=== PATIENT | female | born 1970 | race Caucasian/White ===

== ENCOUNTER 2023-02-11 07:23 | Outpatient (OUT) | payer OTHER, SELFPAY ==
[2023-02-11 08:13] LABS: Basophils Absolute Auto 0.1 10^3/uL (0.0-0.1); Basophils Percent Auto 0.6 % (0.2-2.0); Eosinophils Absolute Auto 0.3 10^3/uL (0.0-0.7); Eosinophils Percent Auto 3.2 % (0.9-7.0); Hematocrit 40.3 % (36.0-48.0); Immature Granulocytes Abs Auto 0.05 10^3/uL (0.00-0.03); Immature Granulocytes Pct Auto 0.6 % (0.0-0.5); Lymphocytes Absolute Auto 2.6 10^3/uL (1.2-3.8); Mean Corpuscular HGB Conc 32.3 g/dL (29.9-35.2); Mean Corpuscular Hemoglobin 29.1 pg (26.7-34.0); Mean Corpuscular Volume 90.4 fL (81.0-99.0); Monocytes Absolute Auto 0.6 10^3/uL (0.3-0.8); Monocytes Percent Auto 6.8 % (1.7-12.0); Neutrophils Percent Auto 58.8 % (43.0-75.0); Platelet Count 240 10^3/uL (150-450); Red Blood Count 4.46 10^6/uL (4.20-5.40); Red Cell Distribution Width 12.9 % (11.0-15.0); White Blood Count 8.5 10^3/uL (4.0-11.0)
[2023-02-11 10:31] LABS: Bilirubin Urine NEGATIVE (NEGATIVE); Blood Urine NEGATIVE (NEGATIVE); Clarity Urine CLEAR (CLEAR); Color Urine LT. YELLOW (YELLOW); Glucose Urine UA NEGATIVE (NEGATIVE); Ketones Urine NEGATIVE (NEGATIVE); Leukocyte Esterase Urine NEGATIVE (NEGATIVE); Nitrite Urine NEGATIVE (NEGATIVE); Protein Urine NEGATIVE (NEG/TRACE); Specific Gravity Urine 1.025 (1.005-1.025); Urobilinogen Urine 0.2 EU/dL (0.2-1.0); pH Urine 5.5 (5.0-9.0)
[2023-02-11 10:32] LABS: Urine Microscopic Indicated NO
[2023-02-11 10:50] LABS: Carbon Dioxide 27.9 mmol/L (21.0-32.0); Chloride 100 mmol/L (98-107); Potassium 3.9 mmol/L (3.5-5.1); Sodium 135 mmol/L (136-145)
[2023-02-11 10:51] LABS: BUN Creatinine Ratio 25.9; Calcium 9.1 mg/dL (8.5-10.1); Estimated GFR (African America >60 (>=60); Estimated GFR (Non-African Ame >60 (>=60); Glucose 157 mg/dL (74-106)
[2023-02-11 10:52] LABS: Alanine Aminotransferase 41 U/L (14-59); Alkaline Phosphatase 80 U/L (46-116); Aspartate Amino Transferase 22 U/L (15-37)
[2023-02-11 10:53] LABS: Albumin Level 3.8 g/dL (3.4-5.0); Globulin 3.8 g/dL; Total Protein 7.6 g/dL (6.4-8.2)
[2023-02-11 10:54] LABS: Cholesterol 175 mg/dL (<=200); HDL Cholesterol 56 mg/dL (40-60); Triglycerides 121 mg/dL (<=150); VLDL CHOLESTEROL 24.2 mg/dL
[2023-02-11 10:55] LABS: TSH W/ REFLEX FT4 4.084 uIU/mL (0.358-3.740)
[2023-02-11 10:57] LABS: Chol HDL Ratio 3.1
[2023-02-11 12:41] LABS: Free T4 0.83 ng/dL (0.76-1.46)
== END 2023-02-11 07:24 | disposition home or self-care (01) ==
PROVIDERS: PCP Nurse Practitioner; Visit Provider Nurse Practitioner
DX: Z00.00 Encounter for general adult medical examination without abnormal findings (principal)
CPT/HCPCS: 36415; 80053; 80061; 81003; 84439; 84443; 85025

== ENCOUNTER 2023-05-30 15:54 | Outpatient (OUT) | payer OTHER, SELFPAY ==
--- NOTE | 2023-05-30 16:07 | MM_ITS ---
Patient Name: SHERLYN PHAM MR#: [id number] : 1970 Exam Date: 05/30/2023 Ordering Doctor: CUCA Stephens CNP RADIOLOGY REPORT PROCEDURE: MM TOMOSYNTHESIS SCREENING BI COMPARISON: MG MAMM SCREEN 3D JASON CAD, 05/19/2022. MG MAMM SCREEN 3D JASON CAD, 12/08/2020. MG MAMM SCREEN JASON W CAD, 09/27/2018. MG MAMM SCREEN AJSON W CAD, 02/05/2009. INDICATIONS: screening Calculator Name NCI Breast Cancer Risk Assessment Tool 5 Year Breast Cancer Risk 1.30% Lifetime Breast Cancer Risk 10.50% Personal Breast Cancer No Personal Ovarian Cancer No Treatments Hysterectomy and Thyroidectomy Family Cancers Father with lung cancer at age ~55. LOCATION: [facility] BREAST COMPOSITION: There are scattered areas of fibroglandular density. FINDINGS: DIAGNOSTIC CATEGORY 1--NEGATIVE. RIGHT BREAST: No significant suspicious finding. No significant change has occurred. LEFT BREAST: No significant suspicious finding. No significant change has occurred. RECOMMENDATIONS: ROUTINE MAMMOGRAM AND CLINICAL EVALUATION IN 12 MONTHS. PLEASE NOTE: A NORMAL MAMMOGRAM DOES NOT EXCLUDE THE POSSIBILITY OF BREAST CANCER. A CLINICALLY SUSPICIOUS PALPABLE LUMP SHOULD BE BIOPSIED. Dictated by: Martinez Newton M.D. on 05/31/2023 at 13:43 Approved by: Martinez Newton M.D. on 05/31/2023 at 13:47
[2023-05-30 17:13] LABS: TSH W/ REFLEX FT4 0.715 uIU/mL (0.358-3.740)
== END 2023-05-30 15:55 | disposition home or self-care (01) ==
LOC: LAB 15:54
PROVIDERS: PCP Nurse Practitioner; Visit Provider Nurse Practitioner
DX: Z12.31 Encounter for screening mammogram for malignant neoplasm of breast (principal); E03.9 Hypothyroidism, unspecified; Z80.1 Family history of malignant neoplasm of trachea, bronchus and lung
CPT/HCPCS: 36415; 77063; 77067; 84443

== ENCOUNTER 2024-06-06 15:16 | Outpatient (OUT) | payer OTHER, SELFPAY ==
--- NOTE | 2024-06-06 15:21 | MM_ITS ---
Patient Name: SHERLYN PHAM MR#: [id number] : 1970 Exam Date: 06/06/2024 Ordering Doctor: CUCA SILVA CNP RADIOLOGY REPORT PROCEDURE: MM TOMOSYNTHESIS SCREENING BI COMPARISON: MM TOMOSYNTHESIS SCREENING BI, 05/30/2023. MG MAMM SCREEN 3D JASON CAD, 05/19/2022. MG MAMM SCREEN 3D JASON CAD, 12/08/2020. MG MAMM SCREEN JASON W CAD, 02/05/2009. INDICATIONS: Screening Calculator Name NCI Breast Cancer Risk Assessment Tool 5 Year Breast Cancer Risk 1.30% Lifetime Breast Cancer Risk 10.30% Personal Breast Cancer No Personal Ovarian Cancer No Treatments Hysterectomy and Thyroidectomy Family Cancers Father with lung cancer at age ~55. LOCATION: [facility] BREAST COMPOSITION: There are scattered areas of fibroglandular density. FINDINGS: DIAGNOSTIC CATEGORY 1--NEGATIVE. RIGHT BREAST: No significant suspicious finding. LEFT BREAST: No significant suspicious finding. RECOMMENDATIONS: ROUTINE MAMMOGRAM AND CLINICAL EVALUATION IN 12 MONTHS. PLEASE NOTE: A NORMAL MAMMOGRAM DOES NOT EXCLUDE THE POSSIBILITY OF BREAST CANCER. A CLINICALLY SUSPICIOUS PALPABLE LUMP SHOULD BE BIOPSIED. Dictated by: [place] Damon DO on 06/06/2024 at 16:34 Approved by: [place] Damon DO on 06/06/2024 at 16:38
== END 2024-06-06 15:17 | disposition home or self-care (01) ==
LOC: MAMMO 15:16
PROVIDERS: PCP Nurse Practitioner; Visit Provider Nurse Practitioner
DX: Z12.31 Encounter for screening mammogram for malignant neoplasm of breast (principal); Z80.1 Family history of malignant neoplasm of trachea, bronchus and lung
CPT/HCPCS: 77063; 77067